=== PATIENT | female | born 1970 | race Caucasian/White ===

== ENCOUNTER 2021-05-17 11:54 | Emergency (ER) | payer BC, OTHER ==
[2021-05-17 12:29] VITALS: RESP 18
[2021-05-17] MEDS ORDERED: ONDANSETRON 4 MG TAB PO STA (12:44)
[2021-05-17] MEDS ORDERED: HYDROmorphone 1 MG/ML 1 ML SYRINGE IM STA (12:45)
[2021-05-17] MEDS ORDERED: CYCLOBENZAPRINE 10 MG TAB PO STA (12:46)
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
[2021-05-17] MEDS ORDERED: ACET/COD 300 MG/30 MG STARTER PACK 6 TAB BTL PO STA (15:28)
[2021-05-17 16:27] VITALS: BP 130/78; PULSE 71; TEMP 98.1
== END 2021-05-17 16:27 | disposition home or self-care (01) ==
LOC: EC 11:54
DX: S16.1XXA Strain of muscle, fascia and tendon at neck level, initial encounter (principal); S13.4XXA Sprain of ligaments of cervical spine, initial encounter; M25.512 Pain in left shoulder; J45.909 Unspecified asthma, uncomplicated; F17.200 Nicotine dependence, unspecified, uncomplicated; Z91.040 Latex allergy status; Z88.0 Allergy status to penicillin; Z90.710 Acquired absence of both cervix and uterus; V43.52XA Car driver injured in collision with other type car in traffic accident, initial encounter; Y92.410 Unspecified street and highway as the place of occurrence of the external cause
CPT/HCPCS: 99284; 96372; 73020; 72128; 72125; 70450; J1170

== ENCOUNTER → 2023-03-04 | Outpatient (CLI) | payer BC ==
--- NOTE | 2023-03-05 09:45 | MM ---
Reason for Exam: Screening (asymptomatic). Patient History: Menarche at age 15. First Full-Term at age 28. Left ovary removed at age 41. Right ovary removed at age 41. Hysterectomy at age 41. Postmenopausal. Estrogen, from age 41 until age 41. Risk Values: Nicolasa 5 year model risk: 1.1%. NCI Lifetime model risk: 8.8%. Prior Study Comparison: No prior studies available for comparison. Tissue Density: The breast tissue is heterogeneously dense. This may lower the sensitivity of mammography. Findings: Analyzed By CAD. There is no suspicious group of microcalcifications or new suspicious mass in either breast. There is a 1.5 cm nodular density in the upper outer quadrant of the right breast. There is a 8 mm nodule in the upper outer quadrant of the left breast. There are no suspicious grouped calcifications. No architectural distortion. Overall Assessment: Incomplete: need additional imaging evaluation, BI-RAD 0 Management: Diagnostic Breast Ultrasound of both breasts. . [facility] will attempt to contact patient to return for supplemental views and ultrasound if indicated. Patient should continue monthly self-breast exams. A clinical breast exam by your physician is recommended on an annual basis. This exam should not preclude additional follow-up of suspicious palpable abnormalities. Note on Nicolasa scores and lifetime risk: 1. A Nicolasa score greater than 3% is considered moderate risk. If this is the case, consider specialist referral to assess eligibility for a risk reducing agent. 2. If overall lifetime risk for the development of breast cancer is 20% or higher, the patient may qualify for future screening with alternating mammogram and breast MRI. Electronically signed and approved by: Gómez Gilmore M.D. Radiologis
== END | disposition home or self-care (01) ==
LOC: RADMAMWWP 09:34
PROVIDERS: ATTEND Family Medicine
DX: Z12.31 Encounter for screening mammogram for malignant neoplasm of breast (principal); Z78.0 Asymptomatic menopausal state
CPT/HCPCS: 77067

== ENCOUNTER → 2023-03-19 | Day surgery (SDC) | payer BC ==
--- NOTE | 2023-03-24 13:39 | MM ---
Reason for Exam: Post Procedure Mammogram. Last screening mammogram was performed less than 1 month ago. Patient History: Menarche at age 15. First Full-Term at age 28. Left ovary removed at age 41. Right ovary removed at age 41. Hysterectomy at age 41. Postmenopausal. Patient has history of breast feeding. Estrogen, from age 41 until age 41. Maternal aunt had ovarian cancer at or over age 50. Maternal aunt had ovarian cancer. Maternal aunt had ovarian cancer. Risk Values: Nicolasa 5 year model risk: 1.1%. NCI Lifetime model risk: 8.8%. Prior Study Comparison: 03/04/2023 Bilateral MG screening mammo w CAD, [facility]. Tissue Density: Right: The breast tissue is heterogeneously dense. This may lower the sensitivity of mammography. Pathology Description: Location: 10 o'clock. Marker Left Behind. Needle Type: Mammotome Cores: 3 Gauge: 13 The procedure of ultrasound guided core biopsy was explained to the patient. Benefits, alternatives, and risks were discussed. An informed consent was then obtained. The patient was placed in supine positioning for imaging and for the procedure. The overlying skin was prepped and draped in usual sterile fashion. Lidocaine was used as anesthetic into the skin and subcutaneous tissue up to area of concern in the 10:00 right breast. Under ultrasound guidance, a 13-gauge vacuum-assisted mammotome Elite biopsy gun was used to obtain 3 core samples. Following this, a coil clip was left in lesion. The patient tolerated the procedure well without any immediate complication. The patient was kept in the radiology department for short stay after the procedure and then discharged home in stable condition. Postprocedure mammogram: The patient was transferred to mammography for physician ordered post procedure mammogram for clip placement verification. Post procedure mammogram shows clip at the site of posterior upper outer quadrant mammographic focal asymmetry. IMPRESSION: Successful, uncomplicated ultrasound guided core biopsy of 10:00 mammographic correlate right breast; full pathology results to follow. Pathology Results: Result: Benign, Fibroadenoma. 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 Overall Assessment: Benign Assessment: MG diagnostic mammo RT wo CAD - Right: Benign, BI-RAD 2. Management: Diagnostic Breast Ultrasound of the right breast in 6 months. Electronically signed and approved by: Jovanna Wisdom M.D. Radiologist
== END ==
LOC: RADUSWWP 12:32
PROVIDERS: ATTEND Family Medicine
DX: N60.21 Fibroadenosis of right breast (principal)
CPT/HCPCS: 88305; 77065; 19083; A4648